=== PATIENT | male | born 1955 | race Caucasian/White ===

== ENCOUNTER 2019-09-11 08:51 | Emergency (ER) | payer SELFPAY ==
[~2019-09-11] VITALS: Ht 172.7 cm; Wt 70.0 kg
[2019-09-11 09:05] VITALS: BP 113/79
== END 2019-09-11 10:50 | disposition home or self-care (01) ==
LOC: ER 08:51
DX: D17.1 Benign lipomatous neoplasm of skin and subcutaneous tissue of trunk (principal); I83.93 Asymptomatic varicose veins of bilateral lower extremities
CPT/HCPCS: 76881; 99284

== ENCOUNTER 2024-06-17 10:06 | Inpatient (IN) | payer MEDICARE ==
[~2024-06-17] VITALS: Ht 172.7 cm; Wt 72.4 kg
[2024-06-17] VITALS (10 sets, daily range): BP systolic 119–149; BP diastolic 68–85; PULSE 70–95; RESP 12–19; TEMP 99.6; O2SAT 94–97
[2024-06-17 10:49] LABS: BASOPHILS # (AUTO) 0.1 X10'3 (0-0.2); BASOPHILS % (AUTO) 0.2 % (0-1); EOSINOPHILS % (AUTO) 0 % (0-6); HEMOGLOBIN 16.8 g/dl (14.0-17.9); LYMPHOCYTES # (AUTO) 0.5 X10'3 (1.1-4.8); LYMPHOCYTES % (AUTO) 2.4 % (21-51); MEAN CORPUSCULAR HEMOGLOBIN 30.8 PG (27.0-31.0); MEAN CORPUSCULAR HGB CONC 34.3 g/dL (33.0-36.5); MEAN CORPUSCULAR VOLUME 89.9 FL (78-98); MEAN PLATELET VOLUME 8.7 FL (7.4-10.4); MONOCYTES % (AUTO) 4.1 % (2-12); NEUTROPHILS # (AUTO) 21.8 X10'3 (1.8-7.7); NEUTROPHILS % (AUTO) 93.3 % (42-75); PLATELET COUNT 232 X10'3 (140-440); RED BLOOD COUNT 5.45 X10'6 (4.70-6.10); RED CELL DISTRIBUTION WIDTH 14.8 % (11.5-14.5); WHITE BLOOD COUNT 23.4 X10'3 (4.5-11.0)
[2024-06-17] MEDS: normal saline 1000ml 1,000 ML IV ONE ×2 (10:50→16:04)
[2024-06-17 11:02] LABS: ALANINE AMINOTRANSFERASE 46 U/L (12-78); ALBUMIN 4.2 G/DL (3.4-5.0); ALBUMIN/GLOBULIN RATIO 1.1 (1.1-1.5); ALKALINE PHOSPHATASE 68 IU/L (46-116); ANION GAP 9 (8-16); ASPARTATE AMINO TRANSFERASE 20 U/L (10-37); BILIRUBIN,TOTAL 1.4 MG/DL (0.1-1.0); BLOOD UREA NITROGEN 14 MG/DL (7-18); BUN/CREATININE RATIO 9.7 (10.0-20.0); CALCIUM 9.8 MG/DL (8.5-10.1); CHLORIDE 99 MMOL/L (99-107); CREATININE 1.44 MG/DL (0.60-1.10); GLUCOSE 184 MG/DL (70-104); LIPASE 23 U/L (16-77); POTASSIUM 3.2 MMOL/L (3.5-5.1); SODIUM 139 MMOL/L (135-145); TOTAL CARBON DIOXIDE 30.6 MMOL/L (24-32); TOTAL PROTEIN 8.2 G/DL (6.4-8.2); eCRCL 46 ML/MIN; eGFR 48 ML/MIN
[2024-06-17] MEDS: ondansetron/PF 4mg/2ml inj IV ONE (13:52)
[2024-06-17] MEDS ORDERED: FLO0.4C PO (13:59)
[2024-06-17] MEDS ORDERED: TESTOSTERONE IM (13:59)
[2024-06-17] MEDS ORDERED: LISI1TAB53 PO (13:59)
[2024-06-17] MEDS: acetaminophen 1,000mg/100ml IV 100 ML IV STA (16:05)
[2024-06-17] MEDS: piperacillin/tazo 3.375gm/50ml 50 ML IV ONE (16:06)
[2024-06-17] MEDS ORDERED: potassium Cl 20 mEq SR tablet PO PRN (16:40)
[2024-06-17] MEDS ORDERED: HYDROcodone/acetaminophen 5mg/325mg tablet PO PRN (16:40)
[2024-06-17] MEDS ORDERED: ondansetron/PF 4mg/2ml inj IV PRN ×2 (16:40→17:20)
[2024-06-17] MEDS ORDERED: HYDROcodone/acetaminophen 10/325mg tab PO PRN (16:40)
[2024-06-17] MEDS ORDERED: potassium Cl 40MEQ/1/2NS 520ml 520 ML IV PRN (16:40)
[2024-06-17] MEDS ORDERED: morphine 2 MG/ML inj. syringe IV PRN ×3 (16:40→17:20)
[2024-06-17] MEDS ORDERED: magnesium Cl slow-release 64mg tablet PO PRN (16:40)
[2024-06-17] MEDS ORDERED: magnesium sulf-water 2g/50mL 50 ML IV PRN (16:40)
[2024-06-17] MEDS ORDERED: magnesium sulf-water 4G/100mL 100 ML IV PRN (16:40)
[2024-06-17] MEDS: INDOCYANINE GREEN 25 MG/10 ML VIAL IV STA (16:45)
[2024-06-17] MEDS ORDERED: morphine 4 MG/ML inj SYRINge IV PRN (17:20)
[2024-06-17] MEDS ORDERED: fentaNYL/PF 50MCG/1 ML 2ML syringe IV PRN ×2 (17:20)
[2024-06-17] MEDS ORDERED: hydrALAZINE 20mg/ml inj. IV PRN (17:20)
[2024-06-17] MEDS: ringers solution, lacted 1,000 ML IV SCH (17:20)
[2024-06-17] MEDS ORDERED: labetalol 20mg/4ml (5mg/ml) syringe IV PRN (17:20)
[2024-06-17] MEDS ORDERED: sugammadex 200mg/2ml injection IV ONE (17:56)
[2024-06-17] MEDS ORDERED: morphine 10mg/ml inj. ONE (18:00)
[2024-06-17] MEDS ORDERED: propofol inj 20 ML IV ONE (18:00)
[2024-06-17] MEDS ORDERED: LIDOcaine 2% (20mg/ml) 5ml vial ONE (18:00)
[2024-06-17] MEDS ORDERED: dexamethasone sod phosphate 4mg/ml inj. ONE (18:00)
[2024-06-17] MEDS ORDERED: ondansetron/PF 4mg/2ml inj ONE (18:00)
[2024-06-17] MEDS ORDERED: midazolam 1 mg/ML 2ml injection ONE (18:00)
[2024-06-17] MEDS ORDERED: rocuronium 10mg/ml inj IV ONE (18:02)
[2024-06-17] MEDS ORDERED: BUPIVAcaine 2.5mg/ml inj 50ml vial (contains preservative) ONE (18:09)
[2024-06-17] MEDS ORDERED: LIDOcaine 1% (10mg/ml)w/preservative inj. 20ml MDV ONE (18:09)
[2024-06-17] MEDS ORDERED: desflurane 240ml liquid inh. IH ONE (18:40)
[2024-06-17] MEDS ORDERED: labetalol 20mg/4ml (5mg/ml) syringe IV ONE (19:49)
[2024-06-17] MEDS: K and/or MAG REPLACEMENT MC SCH (20:00)
[2024-06-17] MEDS ORDERED: HYDROmorphone inj. 0.5 MG/0.5 ML DISP.SYRIN IV PRN (20:30)
[2024-06-17] MEDS: normal saline 1000ml 1,000 ML IV SCH (21:44)
[2024-06-17] MEDS: docusate sod 100mg capsule PO SCH (21:46)
[2024-06-18] VITALS (7 sets, daily range): BP systolic 101–134; BP diastolic 48–77; PULSE 70–89; RESP 18–20; TEMP 97.8–99.8; O2SAT 92–96
[2024-06-18] MEDS: piperacillin/tazo 3.375gm/50ml 50 ML IV SCH (00:54)
[2024-06-18 06:14] LABS: BASOPHILS % (AUTO) 0.1 % (0-1); EOSINOPHILS % (AUTO) 0 % (0-6); HEMATOCRIT 44.2 % (42.0-52.0); HEMOGLOBIN 14.8 g/dl (14.0-17.9); LYMPHOCYTES # (AUTO) 0.8 X10'3 (1.1-4.8); LYMPHOCYTES % (AUTO) 4.5 % (21-51); MEAN CORPUSCULAR HEMOGLOBIN 30.7 PG (27.0-31.0); MEAN CORPUSCULAR HGB CONC 33.5 g/dL (33.0-36.5); MEAN CORPUSCULAR VOLUME 91.6 FL (78-98); MEAN PLATELET VOLUME 9.5 FL (7.4-10.4); MONOCYTES % (AUTO) 5.4 % (2-12); NEUTROPHILS # (AUTO) 16.1 X10'3 (1.8-7.7); PLATELET COUNT 192 X10'3 (140-440); RED BLOOD COUNT 4.83 X10'6 (4.70-6.10); RED CELL DISTRIBUTION WIDTH 14.8 % (11.5-14.5); WHITE BLOOD COUNT 17.9 X10'3 (4.5-11.0)
[2024-06-18 06:34] LABS: ALANINE AMINOTRANSFERASE 59 U/L (12-78); ALBUMIN 2.8 G/DL (3.4-5.0); ALBUMIN/GLOBULIN RATIO 0.9 (1.1-1.5); ALKALINE PHOSPHATASE 47 IU/L (46-116); ANION GAP 7 (8-16); ASPARTATE AMINO TRANSFERASE 54 U/L (10-37); BILIRUBIN,TOTAL 1.4 MG/DL (0.1-1.0); BLOOD UREA NITROGEN 14 MG/DL (7-18); BUN/CREATININE RATIO 11.5 (10.0-20.0); CALCIUM 8.1 MG/DL (8.5-10.1); CHLORIDE 106 MMOL/L (99-107); CREATININE 1.22 MG/DL (0.60-1.10); GLUCOSE 135 MG/DL (70-104); POTASSIUM 3.3 MMOL/L (3.5-5.1); SODIUM 142 MMOL/L (135-145); TOTAL CARBON DIOXIDE 28.7 MMOL/L (24-32); eCRCL 55 ML/MIN; eGFR 59 ML/MIN
[2024-06-18] MEDS ORDERED: enoxaparin 40mg/0.4ml syringe SUBCUT SCH (08:00)
[2024-06-18] MEDS: heparin, porcine 5000 units/ml vial SQ SCH (08:50)
[2024-06-18] MEDS: lisinopril 20mg tablet PO SCH (08:53)
[2024-06-18] MEDS: tamsulosin 0.4mg capsule PO SCH (08:54)
[2024-06-18] MEDS: HYDROchlorothiazide 25mg tablet PO SCH (08:54)
[2024-06-18] MEDS: potassium Cl 20 mEq SR tablet PO PRN (08:55)
[2024-06-19] MEDS: acetaminophen 325mg tablet PO PRN (00:33)
[2024-06-19 06:00] VITALS: BP 125/58; PULSE 69; RESP 22; TEMP 98.8; O2SAT 92
[2024-06-19 06:03] LABS: BASOPHILS # (AUTO) 0.1 X10'3 (0-0.2); BASOPHILS % (AUTO) 0.6 % (0-1); EOSINOPHILS # (AUTO) 0.2 X10'3 (0-0.9); EOSINOPHILS % (AUTO) 1.7 % (0-6); HEMATOCRIT 43.9 % (42.0-52.0); HEMOGLOBIN 14.6 g/dl (14.0-17.9); LYMPHOCYTES # (AUTO) 1.9 X10'3 (1.1-4.8); LYMPHOCYTES % (AUTO) 12.6 % (21-51); MEAN CORPUSCULAR HEMOGLOBIN 30.5 PG (27.0-31.0); MEAN CORPUSCULAR HGB CONC 33.3 g/dL (33.0-36.5); MEAN CORPUSCULAR VOLUME 91.6 FL (78-98); MEAN PLATELET VOLUME 9.7 FL (7.4-10.4); MONOCYTES # (AUTO) 1.1 X10'3 (0-0.9); MONOCYTES % (AUTO) 7.5 % (2-12); NEUTROPHILS # (AUTO) 11.5 X10'3 (1.8-7.7); NEUTROPHILS % (AUTO) 77.6 % (42-75); PLATELET COUNT 178 X10'3 (140-440); RED BLOOD COUNT 4.79 X10'6 (4.70-6.10); RED CELL DISTRIBUTION WIDTH 14.8 % (11.5-14.5); WHITE BLOOD COUNT 14.8 X10'3 (4.5-11.0)
[2024-06-19 06:18] LABS: ALANINE AMINOTRANSFERASE 61 U/L (12-78); ALBUMIN 2.8 G/DL (3.4-5.0); ALBUMIN/GLOBULIN RATIO 0.8 (1.1-1.5); ALKALINE PHOSPHATASE 43 IU/L (46-116); ANION GAP 7 (8-16); ASPARTATE AMINO TRANSFERASE 39 U/L (10-37); BILIRUBIN,TOTAL 1.3 MG/DL (0.1-1.0); BLOOD UREA NITROGEN 15 MG/DL (7-18); BUN/CREATININE RATIO 11.5 (10.0-20.0); CALCIUM 8.5 MG/DL (8.5-10.1); CHLORIDE 105 MMOL/L (99-107); CREATININE 1.31 MG/DL (0.60-1.10); GLUCOSE 95 MG/DL (70-104); MAGNESIUM 2.1 MG/DL (1.5-2.4); POTASSIUM 3.1 MMOL/L (3.5-5.1); SODIUM 142 MMOL/L (135-145); TOTAL CARBON DIOXIDE 30.5 MMOL/L (24-32); TOTAL PROTEIN 6.2 G/DL (6.4-8.2); eCRCL 51 ML/MIN; eGFR 54 ML/MIN
[2024-06-19] MEDS ORDERED: METR-159 PO (08:24)
[2024-06-19] MEDS ORDERED: CIPR-259 PO (08:24)
[2024-06-19] MEDS ORDERED: HYDR-3965 PO (08:24)
[2024-06-19] MEDS: potassium Cl 20 mEq SR tablet PO ONE (08:40)
[2024-06-19 10:00] VITALS: BP 123/66; PULSE 74; RESP 14; TEMP 98.1; O2SAT 96
== END 2024-06-19 13:28 | disposition home or self-care (01) | DRG 417 ==
LOC: ER 10:06 → ED HOLD 16:41 → PACU 20:17 → SUR 3N 21:15
PROVIDERS: ADMIT Family Medicine; ATTEND Family Medicine
PROC: 0WQF4ZZ Repair Abdominal Wall, Percutaneous Endoscopic Approach (ICD-10-PCS; 2024-06-17)
PROC: BF131ZZ Fluoroscopy of Gallbladder and Bile Ducts using Low Osmolar Contrast (ICD-10-PCS; 2024-06-17)
PROC: 8E0W4CZ Robotic Assisted Procedure of Trunk Region, Percutaneous Endoscopic Approach (ICD-10-PCS; 2024-06-17)
PROC: 0FT44ZZ Resection of Gallbladder, Percutaneous Endoscopic Approach (ICD-10-PCS; principal; 2024-06-17 18:40)
DX: K80.00 Calculus of gallbladder with acute cholecystitis without obstruction (principal); N17.0 Acute kidney failure with tubular necrosis; K82.A1 Gangrene of gallbladder in cholecystitis; K42.9 Umbilical hernia without obstruction or gangrene; I10 Essential (primary) hypertension; E87.6 Hypokalemia; N40.0 Benign prostatic hyperplasia without lower urinary tract symptoms; K21.9 Gastro-esophageal reflux disease without esophagitis; Z80.0 Family history of malignant neoplasm of digestive organs; Z79.899 Other long term (current) drug therapy
CPT/HCPCS: 36415; 74176; 76700; 80053; 83605; 83690; 83735; 84484; 85025; 87081; 88304; 93005; 99285; A4215; A4615; A4618; A7000; G0378; J0131; J1100; J1644; J2003; J2250; J2274; J2405; J2543; J2704; J3490; J7030; J7120

== ENCOUNTER 2024-06-24 10:50 | Emergency (ER) | payer MEDICARE ==
[~2024-06-24] VITALS: Ht 172.7 cm; Wt 72.0 kg
[~2024-06-24 10:50] MED LIST: CIPR-259 PO; FLO0.4C PO; HYDR-3965 PO; LISI1TAB53 PO; METR-159 PO; TESTOSTERONE IM
[2024-06-24 10:54] VITALS: TEMP 98.5
[2024-06-24 12:35] VITALS: BP 133/81; PULSE 70; RESP 16; O2SAT 96
== END 2024-06-24 12:37 | disposition home or self-care (01) ==
LOC: ER 10:51
DX: M79.661 Pain in right lower leg (principal); Z79.899 Other long term (current) drug therapy
CPT/HCPCS: 93971; 99284

== ENCOUNTER 2024-08-04 18:40 | Inpatient (IN) | payer MEDICARE ==
[~2024-08-04] VITALS: Ht 172.7 cm; Wt 72.6 kg
[~2024-08-04 18:40] MED LIST changes: -CIPR-259 PO; -HYDR-3965 PO; -METR-159 PO
[2024-08-04 19:23] LABS: BASOPHILS # (AUTO) 0.1 X10'3 (0-0.2); BASOPHILS % (AUTO) 0.8 % (0-1); EOSINOPHILS # (AUTO) 0.3 X10'3 (0-0.9); HEMATOCRIT 48.2 % (42.0-52.0); HEMOGLOBIN 16.1 g/dl (14.0-17.9); LYMPHOCYTES # (AUTO) 3.5 X10'3 (1.1-4.8); LYMPHOCYTES % (AUTO) 31.9 % (21-51); MEAN CORPUSCULAR HEMOGLOBIN 30.7 PG (27.0-31.0); MEAN CORPUSCULAR HGB CONC 33.3 g/dL (33.0-36.5); MEAN PLATELET VOLUME 9.3 FL (7.4-10.4); NEUTROPHILS # (AUTO) 6.1 X10'3 (1.8-7.7); NEUTROPHILS % (AUTO) 55.3 % (42-75); PLATELET COUNT 213 X10'3 (140-440); RED BLOOD COUNT 5.24 X10'6 (4.70-6.10); RED CELL DISTRIBUTION WIDTH 15.1 % (11.5-14.5)
[2024-08-04 19:30] LABS: ALANINE AMINOTRANSFERASE 84 U/L (12-78); ALBUMIN 4.2 G/DL (3.4-5.0); ALBUMIN/GLOBULIN RATIO 1.2 (1.1-1.5); ALKALINE PHOSPHATASE 75 IU/L (46-116); ANION GAP 8 (8-16); ASPARTATE AMINO TRANSFERASE 104 U/L (10-37); BILIRUBIN,TOTAL 0.7 MG/DL (0.1-1.0); BLOOD UREA NITROGEN 19 MG/DL (7-18); CALCIUM 9.4 MG/DL (8.5-10.1); CHLORIDE 105 MMOL/L (99-107); CREATININE 1.12 MG/DL (0.60-1.10); GLUCOSE 105 MG/DL (70-104); POTASSIUM 3.3 MMOL/L (3.5-5.1); SODIUM 142 MMOL/L (135-145); TOTAL PROTEIN 7.7 G/DL (6.4-8.2); eCRCL 59 ML/MIN; eGFR 65 ML/MIN
[2024-08-04 19:39] LABS: PRO BRAIN NATRIURETIC PEPTIDE 329 PG/ML (0-125)
[2024-08-04 19:49] LABS: LIPASE 33 U/L (16-77)
[2024-08-04] MEDS ORDERED: iohexol 350MG/ML 100ml bottle IV ONE (20:38)
[2024-08-05] VITALS (15 sets, daily range): BP systolic 131–163; BP diastolic 67–90; PULSE 61–116; RESP 13–18; TEMP 97.6–98; O2SAT 96–98
[2024-08-05] MEDS ORDERED: MELO-100 PO (01:00)
[2024-08-05] MEDS ORDERED: potassium Cl 20 mEq SR tablet PO PRN (02:00)
[2024-08-05] MEDS ORDERED: magnesium sulf-water 2g/50mL 50 ML IV PRN (02:00)
[2024-08-05] MEDS ORDERED: magnesium sulf-water 4G/100mL 100 ML IV PRN (02:00)
[2024-08-05] MEDS ORDERED: ondansetron/PF 4mg/2ml inj IV PRN (02:00)
[2024-08-05] MEDS ORDERED: potassium Cl 40MEQ/1/2NS 520ml 520 ML IV PRN (02:00)
[2024-08-05] MEDS ORDERED: HYDROcodone/acetaminophen 5mg/325mg tablet PO PRN (02:00)
[2024-08-05] MEDS ORDERED: acetaminophen 325mg tablet PO PRN ×2 (02:00)
[2024-08-05] MEDS ORDERED: magnesium Cl slow-release 64mg tablet PO PRN (02:00)
[2024-08-05] MEDS ORDERED: HYDROcodone/acetaminophen 10/325mg tab PO PRN (02:00)
[2024-08-05] MEDS ORDERED: mag hydrox/Alum hydrox/simeth 30ml oral suspension PO PRN (02:00)
[2024-08-05] MEDS ORDERED: morphine 2 MG/ML inj. syringe IV PRN (02:00)
[2024-08-05] MEDS ORDERED: nitroGLYCERIN 0.4mg SUBLingual tab SL PRN (02:05)
[2024-08-05] MEDS ORDERED: metoprolol tartrate 1mg/ml inj IV PRN (02:05)
[2024-08-05] MEDS ORDERED: aminophylline 250mg/10ml inj. IV PRN (02:05)
[2024-08-05] MEDS: aspirin 81mg, enteric-coated 1 TAB TABLET.DR PO SCH (03:50)
[2024-08-05 05:55] LABS: BILIRUBIN,URINE NEGATIVE (Neg); CLARITY,URINE CLEAR (Clear); COLOR,URINE YELLOW (Yellow); GLUCOSE, URINE NEGATIVE (Neg); KETONES,URINE TRACE mg/dl (Neg); LEUKOCYTE ESTERASE ,URINE NEGATIVE (Neg); NITRITES, URINE NEGATIVE (Neg); OCCULT BLOOD,URINE NEGATIVE (Neg); PH,URINE 7.5 (4.8-8.0); PROTEIN,URINE NEGATIVE (Neg); UROBILINOGEN,URINE 0.2 E.U/dL (0.2-1.0)
[2024-08-05 05:58] LABS: UA COLLECTION TYPE NON-SPECIFIED
[2024-08-05 08:21] LABS: CHOLESTEROL 134 MG/DL (0-200); HDL CHOLESTEROL 45 MG/DL (35-60); LDL CHOLESTEROL 74 MG/DL (50-100); MAGNESIUM 1.9 MG/DL (1.5-2.4); POTASSIUM 3.4 MMOL/L (3.5-5.1); TRIGLYCERIDES 96 MG/DL (20-135)
[2024-08-05] MEDS: atorvastatin 10mg tablet PO SCH (08:32)
[2024-08-05] MEDS: pantoprazole 40mg Tablet.DR PO SCH (08:32)
[2024-08-05] MEDS: potassium Cl 20 mEq SR tablet PO PRN (08:32)
[2024-08-05] MEDS: heparin, porcine 5000 units/ml vial SQ SCH (08:33)
[2024-08-05] MEDS: K and/or MAG REPLACEMENT MC SCH (08:35)
[2024-08-05] MEDS ORDERED: aminophylline 500mg/20ml vial ONE (09:06)
[2024-08-05] MEDS: regadenoson 0.4mg/5ml syringe IV PRN (09:07)
[2024-08-06 02:00] VITALS: BP 136/68; PULSE 62; RESP 16; TEMP 97.8; O2SAT 98
[2024-08-06 06:36] LABS: BASOPHILS # (AUTO) 0.1 X10'3 (0-0.2); BASOPHILS % (AUTO) 0.6 % (0-1); EOSINOPHILS # (AUTO) 0.6 X10'3 (0-0.9); EOSINOPHILS % (AUTO) 7.1 % (0-6); HEMATOCRIT 48.2 % (42.0-52.0); HEMOGLOBIN 16.1 g/dl (14.0-17.9); LYMPHOCYTES # (AUTO) 1.9 X10'3 (1.1-4.8); LYMPHOCYTES % (AUTO) 21.7 % (21-51); MEAN CORPUSCULAR HEMOGLOBIN 31.1 PG (27.0-31.0); MEAN CORPUSCULAR HGB CONC 33.4 g/dL (33.0-36.5); MEAN CORPUSCULAR VOLUME 92.9 FL (78-98); MEAN PLATELET VOLUME 9.9 FL (7.4-10.4); MONOCYTES # (AUTO) 0.7 X10'3 (0-0.9); MONOCYTES % (AUTO) 7.6 % (2-12); NEUTROPHILS # (AUTO) 5.6 X10'3 (1.8-7.7); PLATELET COUNT 188 X10'3 (140-440); RED BLOOD COUNT 5.18 X10'6 (4.70-6.10); RED CELL DISTRIBUTION WIDTH 15.2 % (11.5-14.5); WHITE BLOOD COUNT 8.9 X10'3 (4.5-11.0)
[2024-08-06 06:52] LABS: INR 1.1 INR; PROTHROMBIN TIME 11.6 SECONDS (9.0-12.0)
[2024-08-06 07:00] VITALS: BP 140/66; PULSE 60; RESP 16; TEMP 97.9; O2SAT 96
[2024-08-06 07:13] LABS: ALANINE AMINOTRANSFERASE 402 U/L (12-78); ALBUMIN 3.7 G/DL (3.4-5.0); ALBUMIN/GLOBULIN RATIO 1.1 (1.1-1.5); ALKALINE PHOSPHATASE 209 IU/L (46-116); ANION GAP 7 (8-16); ASPARTATE AMINO TRANSFERASE 214 U/L (10-37); BILIRUBIN,TOTAL 1.5 MG/DL (0.1-1.0); BLOOD UREA NITROGEN 17 MG/DL (7-18); BUN/CREATININE RATIO 14.9 (10.0-20.0); CHLORIDE 106 MMOL/L (99-107); CHOLESTEROL 137 MG/DL (0-200); CREATININE 1.14 MG/DL (0.60-1.10); GLUCOSE 81 MG/DL (70-104); HDL CHOLESTEROL 45 MG/DL (35-60); LDL CHOLESTEROL 70 MG/DL (50-100); MAGNESIUM 2.1 MG/DL (1.5-2.4); PHOSPHORUS 2.7 MG/DL (2.3-4.5); POTASSIUM 3.6 MMOL/L (3.5-5.1); SODIUM 143 MMOL/L (135-145); TOTAL CARBON DIOXIDE 30.1 MMOL/L (24-32); TOTAL PROTEIN 7.2 G/DL (6.4-8.2); TRIGLYCERIDES 114 MG/DL (20-135); eCRCL 58 ML/MIN; eGFR 64 ML/MIN
[2024-08-06] MEDS: tamsulosin 0.4mg capsule PO SCH (07:31)
[2024-08-06] MEDS: lisinopril 20mg tablet PO SCH (07:32)
[2024-08-06] MEDS: HYDROchlorothiazide 25mg tablet PO SCH (07:32)
[2024-08-06 08:20] VITALS: RESP 16; O2SAT 96
[2024-08-06 11:00] VITALS: BP 126/75; PULSE 67; RESP 12; TEMP 97.9; O2SAT 94
[2024-08-06] MEDS ORDERED: ASPI-1071 PO (15:58)
[2024-08-06] MEDS ORDERED: ATOR10TA PO (15:58)
== END 2024-08-06 16:30 | disposition home or self-care (01) | DRG 313 ==
LOC: ER 18:41 → ED HOLD 08-05 02:00 → EDBEDREQ 08-05 12:28 → PCU 3S 08-05 13:35
PROVIDERS: ADMIT Internal Medicine Pulmonary Disease; ATTEND Family Medicine
PROC: BW251ZZ Computerized Tomography (CT Scan) of Chest, Abdomen and Pelvis using Low Osmolar Contrast (ICD-10-PCS; principal; 2024-08-04)
PROC: 4A02XM4 Measurement of Cardiac Total Activity, External Approach (ICD-10-PCS; 2024-08-05)
PROC: 3E073KZ Introduction of Other Diagnostic Substance into Coronary Artery, Percutaneous Approach (ICD-10-PCS; 2024-08-05)
DX: R07.9 Chest pain, unspecified (principal); I10 Essential (primary) hypertension; E78.5 Hyperlipidemia, unspecified; Z79.82 Long term (current) use of aspirin; Z85.07 Personal history of malignant neoplasm of pancreas
CPT/HCPCS: 36415; 71045; 71275; 74174; 78452; 80053; 80061; 81003; 83036; 83690; 83735; 83880; 84100; 84132; 84484; 85025; 85610; 87081; 93005; 93017; 93306; 97161; 97530; 99285; A9500; G0378; J0280; J1644; J2785; Q9967

== ENCOUNTER 2024-09-09 19:45 | Emergency (ER) | payer MEDICARE ==
[~2024-09-09 19:45] MED LIST changes: +ASPI-1071 PO; +ATOR10TA PO; +MELO-100 PO; -TESTOSTERONE IM
[2024-09-09 20:29] VITALS: TEMP 98.6
[2024-09-09 20:44] LABS: BASOPHILS # (AUTO) 0.1 X10'3 (0-0.2); BASOPHILS % (AUTO) 0.8 % (0-1); EOSINOPHILS # (AUTO) 0.5 X10'3 (0-0.9); HEMOGLOBIN 17.3 g/dl (14.0-17.9); LYMPHOCYTES # (AUTO) 2.3 X10'3 (1.1-4.8); LYMPHOCYTES % (AUTO) 20.6 % (21-51); MEAN CORPUSCULAR HEMOGLOBIN 30.9 PG (27.0-31.0); MEAN CORPUSCULAR HGB CONC 33.9 g/dL (33.0-36.5); MEAN CORPUSCULAR VOLUME 91.3 FL (78-98); MEAN PLATELET VOLUME 8.9 FL (7.4-10.4); MONOCYTES # (AUTO) 1.2 X10'3 (0-0.9); MONOCYTES % (AUTO) 10.7 % (2-12); NEUTROPHILS # (AUTO) 7.1 X10'3 (1.8-7.7); NEUTROPHILS % (AUTO) 63.9 % (42-75); PLATELET COUNT 199 X10'3 (140-440); RED BLOOD COUNT 5.59 X10'6 (4.70-6.10); RED CELL DISTRIBUTION WIDTH 14.3 % (11.5-14.5); WHITE BLOOD COUNT 11.2 X10'3 (4.5-11.0)
[2024-09-09] MEDS ORDERED: normal saline 1000ML IV soln IVB ONE (20:55)
[2024-09-09] MEDS ORDERED: ketorolac trometh 15mg/ml vial 15 MG/ML ML IV ONE (20:55)
[2024-09-09 21:01] LABS: ALANINE AMINOTRANSFERASE 64 U/L (12-78); ALBUMIN 3.8 G/DL (3.4-5.0); ALBUMIN/GLOBULIN RATIO 0.9 (1.1-1.5); ALKALINE PHOSPHATASE 68 IU/L (46-116); ANION GAP 13 (8-16); ASPARTATE AMINO TRANSFERASE 31 U/L (10-37); BILIRUBIN,TOTAL 0.5 MG/DL (0.1-1.0); BLOOD UREA NITROGEN 23 MG/DL (7-18); BUN/CREATININE RATIO 18.7 (10.0-20.0); CALCIUM 9.2 MG/DL (8.5-10.1); CHLORIDE 103 MMOL/L (99-107); CREATININE 1.23 MG/DL (0.60-1.10); GLUCOSE 110 MG/DL (70-104); LIPASE 31 U/L (16-77); POTASSIUM 3.4 MMOL/L (3.5-5.1); SODIUM 143 MMOL/L (135-145); TOTAL CARBON DIOXIDE 26.8 MMOL/L (24-32); TOTAL PROTEIN 7.9 G/DL (6.4-8.2); eGFR 58 ML/MIN
[2024-09-09] MEDS: orphenadrine citrate 60mg/2ml inj. IM ONE (21:29)
[2024-09-09] MEDS: ketorolac trometh 15mg/ml vial 15 MG/ML ML IM ONE (21:31)
[2024-09-09] MEDS ORDERED: TRAM50TA2 PO (22:26)
[2024-09-09] MEDS: oxyCODONE/APAP 5-325mg tablet PO ONE (22:36)
[2024-09-09 22:37] VITALS: BP 116/64; PULSE 64; RESP 18; O2SAT 97
== END 2024-09-09 22:49 | disposition home or self-care (01) ==
LOC: ER 19:46
DX: M54.50 Low back pain, unspecified (principal); Z87.442 Personal history of urinary calculi; Z90.49 Acquired absence of other specified parts of digestive tract; Z79.82 Long term (current) use of aspirin
CPT/HCPCS: 36415; 74176; 80053; 83690; 85025; 96372; 99285; J1885; J2360; J7030